=== PATIENT | female | born 1990 | race Two or more races ===

== ENCOUNTER 2020-01-09 04:36 | Inpatient (IN) | payer OTHER ==
[~2020-01-09] VITALS: Ht 160 cm; Wt 55.3 kg
[2020-01-09 04:38] VITALS: Ht 160 cm; Wt 55.3 kg
[2020-01-09 05:33] LABS: BASOPHIL % 0.3 % (0-2); PLATELET COUNT 367 x10^3mcL (130-400)
[2020-01-09 05:37] LABS: RED CELL DISTRIBUTION WIDTH 15.9 % (11.5-14.5)
[2020-01-09 05:43] LABS: CALCIUM 7.9 mg/dL (8.5-10.1); CARBON DIOXIDE 27.7 mmol/L (21-32); CHLORIDE SERUM 103 mmol/L (98-107); CREATININE SERUM 0.9 mg/dL (0.6-1.0); GFR1 > 60 mL/min; GLUCOSE SERUM 106 mg/dL (74-106); POTASSIUM SERUM 3.5 mmol/L (3.5-5.1); SODIUM SERUM 138 mmol/L (136-145)
[2020-01-09 05:47] LABS: ALKALINE PHOSPHATASE 67 U/L (46-116); ALT/SGPT 19 U/L (14-59); AMYLASE 38 U/L (25-115); AST/SGOT 14 U/L (15-37); BILIRUBIN TOTAL 0.17 mg/dL (0.20-1.00); LIPASE 74 IU/L (73-393)
[2020-01-09 05:48] LABS: ALBUMIN 3.1 g/dL (3.4-5.0); TOTAL PROTEIN, SERUM 5.9 g/dL (6.4-8.2)
[2020-01-09 05:54] LABS: rbc morphology (normal/abnorm) ABNORMAL (NORMAL)
[2020-01-09 16:38] LABS: UA SPECIFIC GRAVITY 1.015 (1.005-1.035); microscopic required? YES; urine erythrocyte 3+ (NEGATIVE)
[2020-01-09 16:47] LABS: AMPHETAMINE QUAL UR POSITIVE (See below)
[2020-01-09 17:47] VITALS: BP 98/58
[2020-01-09 19:29] VITALS: BP 98/58
[2020-01-10 06:20] VITALS: BP 105/62
[2020-01-10 07:29] LABS: ALKALINE PHOSPHATASE 58 U/L (46-116); ALT/SGPT 20 U/L (14-59); AST/SGOT 17 U/L (15-37); BILIRUBIN TOTAL 0.3 mg/dL (0.20-1.00); C REACTIVE PROTEIN 3.6 mg/dL (<=0.9); CALCIUM 7.7 mg/dL (8.5-10.1); CARBON DIOXIDE 24.4 mmol/L (21-32); CHLORIDE SERUM 107 mmol/L (98-107); CREATININE SERUM 0.7 mg/dL (0.6-1.0); GFR1 > 60 mL/min; GLUCOSE SERUM 82 mg/dL (74-106); MAGNESIUM 1.7 mg/dL (1.8-2.4); PHOSPHOROUS 3.2 mg/dL (2.5-4.9); POTASSIUM SERUM 4.2 mmol/L (3.5-5.1); SODIUM SERUM 139 mmol/L (136-145)
[2020-01-10 07:30] LABS: ALBUMIN 2.6 g/dL (3.4-5.0); TOTAL PROTEIN, SERUM 5.7 g/dL (6.4-8.2)
[2020-01-10 07:41] LABS: BASOPHIL % 1.7 % (0-2); PLATELET COUNT 365 x10^3mcL (130-400)
[2020-01-10 07:44] LABS: RED CELL DISTRIBUTION WIDTH 15.5 % (11.5-14.5)
[2020-01-10 08:27] VITALS: BP 118/71
[2020-01-10 11:49] VITALS: BP 110/66
[2020-01-10 15:43] VITALS: BP 120/69
[2020-01-10 23:04] VITALS: BP 104/64
[2020-01-11 06:15] VITALS: BP 105/60
[2020-01-11 07:10] LABS: BASOPHIL % 1.8 % (0-2)
[2020-01-11 07:30] LABS: PLATELET COUNT 415 x10^3mcL (130-400); RED CELL DISTRIBUTION WIDTH 16.7 % (11.5-14.5)
[2020-01-11 07:32] LABS: C REACTIVE PROTEIN 1.9 mg/dL (<=0.9); CALCIUM 8.1 mg/dL (8.5-10.1); CARBON DIOXIDE 26.5 mmol/L (21-32); CHLORIDE SERUM 106 mmol/L (98-107); CREATININE SERUM 0.8 mg/dL (0.6-1.0); GFR1 > 60 mL/min; GLUCOSE SERUM 105 mg/dL (74-106); MAGNESIUM 1.9 mg/dL (1.8-2.4); PHOSPHOROUS 3.7 mg/dL (2.5-4.9); POTASSIUM SERUM 3.8 mmol/L (3.5-5.1); SODIUM SERUM 141 mmol/L (136-145)
[2020-01-11 09:45] VITALS: BP 100/62
[2020-01-11 13:40] VITALS: BP 124/64
[2020-01-11 17:03] VITALS: BP 106/61
[2020-01-11 22:02] VITALS: BP 105/50
[2020-01-12 06:13] VITALS: BP 106/60
[2020-01-12 07:11] LABS: BASOPHIL % 0.9 % (0-2)
[2020-01-12 07:24] LABS: PLATELET COUNT 444 x10^3mcL (130-400); RED CELL DISTRIBUTION WIDTH 16.6 % (11.5-14.5)
[2020-01-12 07:54] LABS: C REACTIVE PROTEIN 1.8 mg/dL (<=0.9); CALCIUM 8.3 mg/dL (8.5-10.1); CARBON DIOXIDE 25.7 mmol/L (21-32); CHLORIDE SERUM 106 mmol/L (98-107); CREATININE SERUM 0.6 mg/dL (0.6-1.0); GFR1 > 60 mL/min; GLUCOSE SERUM 83 mg/dL (74-106); MAGNESIUM 1.9 mg/dL (1.8-2.4); PHOSPHOROUS 4.3 mg/dL (2.5-4.9); POTASSIUM SERUM 3.9 mmol/L (3.5-5.1); SODIUM SERUM 141 mmol/L (136-145)
[2020-01-12 09:52] VITALS: BP 101/55
== END 2020-01-12 12:00 | disposition left against medical advice (07) | DRG 832 ==
LOC: ED 04:36 → DU 08:00 → MU 08:00 → DU 18:11
PROVIDERS: Emergency Medicine; Family Medicine; ADMIT Internal Medicine; ATTEND Internal Medicine
PROC: 30233N1 Transfusion of Nonautologous Red Blood Cells into Peripheral Vein, Percutaneous Approach (ICD-10-PCS; principal; 2020-01-09)
DX: O00.90 Unspecified ectopic pregnancy without intrauterine pregnancy (principal); O23.41 Unspecified infection of urinary tract in pregnancy, first trimester; O98.511 Other viral diseases complicating pregnancy, first trimester; F10.239 Alcohol dependence with withdrawal, unspecified; Z20.828 Contact with and (suspected) exposure to other viral communicable diseases; O99.341 Other mental disorders complicating pregnancy, first trimester; O99.011 Anemia complicating pregnancy, first trimester; D64.9 Anemia, unspecified; O25.11 Malnutrition in pregnancy, first trimester; B34.9 Viral infection, unspecified; Z3A.00 Weeks of gestation of pregnancy not specified; Z59.0 Homelessness; O99.281 Endocrine, nutritional and metabolic diseases complicating pregnancy, first trimester; E83.42 Hypomagnesemia; E83.51 Hypocalcemia; Y90.9 Presence of alcohol in blood, level not specified; Z53.29 Procedure and treatment not carried out because of patient's decision for other reasons
CPT/HCPCS: 85378; 97116-GP; G0378; G0480; J0456; J0696; J2060; J2405; J3535; J7030; J7040; J7050; P9016; Q0092; U0003-CS

== ENCOUNTER 2020-01-15 01:35 | Emergency (ER) | payer SELFPAY ==
[~2020-01-15] VITALS: Ht 165.1 cm; Wt 51.3 kg
[2020-01-15 01:43] VITALS: Ht 165.1 cm; Wt 51.3 kg
[2020-01-15 02:46] VITALS: BP 130/67
== END 2020-01-15 02:46 | disposition left against medical advice (07) ==
LOC: ED 01:35
DX: S00.03XA Contusion of scalp, initial encounter (principal); F17.210 Nicotine dependence, cigarettes, uncomplicated; Z59.0 Homelessness; X58.XXXA Exposure to other specified factors, initial encounter; Y93.89 Activity, other specified; Y92.89 Other specified places as the place of occurrence of the external cause; Y99.8 Other external cause status